=== PATIENT | male | born 1985 | race Caucasian/White ===

== ENCOUNTER 2019-04-26 10:16 | Emergency (ER) | payer BC ==
[~2019-04-26] VITALS: Ht 185.4 cm; Wt 111.1 kg
[2019-04-26] MEDS ORDERED: ASPIRIN 81 MG CHEW TAB PO ONE (10:45)
[2019-04-26 10:51] LABS: BASOPHILS # (AUTO) 0.1 (0.0-0.1); EOSINOPHILS # (AUTO) 0.1 (0.0-0.4); HEMATOCRIT 45.5 % (38.2-49.6); HEMOGLOBIN 16.3 g/dL (14.0-18.0); LYMPHOCYTES # (AUTO) 2.2 (1.0-3.2); LYMPHOCYTES % 30.6 % (18.0-39.1); MEAN CORPUSCULAR HEMOGLOBIN 29.7 pg (28-32); MEAN CORPUSCULAR HGB CONC 35.8 g/dL (31-35); MONOCYTES # (AUTO) 0.4 (0.2-0.8); MONOCYTES % 5.4 % (4.4-11.3); NEUTROPHILS # (AUTO) 4.5 (2.1-6.9); NEUTROPHILS % 61.6 % (38.7-80.0); PLATELET COUNT 382 x10e3/uL (140-360); RED BLOOD COUNT 5.48 x10e6/uL (4.3-5.7); RED CELL DISTRIBUTION WIDTH 11.7 % (11.7-14.4)
--- NOTE | 2019-04-26 10:58 | Diagnostic Imaging Report ---
A single frontal view of the chest. HISTORY: Heart fluttering COMPARISON: None available. DISCUSSION: Portable technique, limits sensitivity of the exam. Overlying artifacts. Soft tissue attenuation partially limits sensitivity of the exam. Tubes/Lines: None Lungs and pleura: The lungs are well inflated. No evidence of a consolidative pneumonia or pulmonary alveolar edema. No definite pleural effusion or pneumothorax is identified. Heart and mediastinum: The cardiomediastinal silhouette appear(s) unremarkable. Bones and soft tissues: Appear unremarkable, given this limited exam. IMPRESSION: No acute radiographic abnormality. Signed by: Dr. Matheus Villalobos D.O., M.M.M. on 04/26/2019 10:54 AM
[2019-04-26 11:03] LABS: INR 1.06; PARTIAL THROMBOPLASTIN TIME 33.4 seconds (23.8-35.5); PROTHROMBIN TIME 14.3 seconds (11.9-14.5)
[2019-04-26 11:10] LABS: ALANINE AMINOTRANSFERASE 30 IU/L (0-55); ALBUMIN 4.1 g/dL (3.5-5.0); ALBUMIN/GLOBULIN RATIO 1.2 (0.8-2.0); ALKALINE PHOSPHATASE 76 IU/L (40-150); ANION GAP 12.1 mmol/L (8-16); BLOOD UREA NITROGEN 13 mg/dL (7-26); BUN/CREATININE RATIO 15 (6-25); CALCIUM 9.4 mg/dL (8.4-10.2); CARBON DIOXIDE 25 mmol/L (22-29); CHLORIDE 106 mmol/L (98-107); CREATINE KINASE 265 IU/L (30-200); CREATININE, SERUM 0.87 mg/dL (0.72-1.25); EST GLOMERULAR FILTRATION RATE > 60 ML/MIN (60-); GLUCOSE 109 mg/dL (74-118); POTASSIUM 4.1 mmol/L (3.5-5.1); SODIUM 139 mmol/L (136-145)
[2019-04-26 11:29] LABS: THYROID STIMULATING HORMONE 0.844 uIU/mL (0.350-4.940)
[2019-04-26] MEDS ORDERED: SODIUM CHLORIDE 0.9% 1000ML 1,000 ML ONE (12:04)
[2019-04-26] MEDS ORDERED: SODIUM CHLORIDE 0.9% 1000ML 1,000 ML IV SCH (12:15)
--- NOTE | 2019-04-26 12:30 | NUR ---
DR. MCINTYRE AT BEDSIDE WITH ULTRASOUND MACHINE. DISCUSSING RESULTS WITH PATIENT.
== END 2019-04-26 12:49 | disposition home or self-care (01) ==
LOC: ER 10:16
DX: R00.2 Palpitations (principal); R06.02 Shortness of breath; F17.210 Nicotine dependence, cigarettes, uncomplicated
CPT/HCPCS: 36415; 71045; 80053; 82550; 82553; 84443; 84484; 85025; 85610; 85730; 93005; 99284; J7030

== ENCOUNTER 2019-04-29 15:47 | Observation (INO) | payer BC ==
[~2019-04-29] VITALS: Ht 185.4 cm; Wt 108.4 kg
--- OUTSIDE RECORDS SUMMARY | 2019-04-29 15:50 | XMS REPORT ---
Author Author [facility] Address Unknown Phone Unavailable Care Team Providers Care Bottle Caser Name Role Phone Gonzalez MCINTYRE Unavailable Unavailable Problems This patient has no known problems. Allergies, Adverse Reactions, Alerts This patient has no known allergies or adverse reactions. Medications This patient has no known medications. Results Test Description Test Time Test Comments Text Results Atomic Results Result Comments CHEST SINGLE (PORTABLE) 2019-04-26 10:53:00 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 HISTORY: Heart fluttering COMPARISON: None available. DISCUSSION: Portable technique, limits sensitivity of the exam. Overlying artifacts. Soft tissue attenuation partially limits sensitivity of the exam. Tubes/Lines: None Lungs and pleura: The lungs are well inflated. No evidence of a consolidative pneumonia or pulmonary alveolar edema. No definite pleural effusion or pneumothorax is identified. Heart and mediastinum: The cardiomediastinal silhouette appear(s) unremarkable. Bones and soft tissues: Appear unremarkable, given this limited exam. IMPRESSION: No acute radiographic abnormality. Signed by: Dr. Silvina Villalobos D.O., M.M.M. on 04/26/2019 10:54 AM Dictated By: SILVINA VILLALOBOS DO 1054 Transcribed By: WILLIS on 04/26/191053 COPY TO: TERESA DEMPSEY NP
[2019-04-29] MEDS ORDERED: ASPIRIN 81 MG CHEW TAB PO ONE (16:45)
[2019-04-29 17:04] LABS: BASOPHILS # (AUTO) 0.1 (0.0-0.1); BASOPHILS % 0.6 % (0.0-1.0); EOSINOPHILS % 0.1 % (0.0-6.0); HEMATOCRIT 43.9 % (38.2-49.6); HEMOGLOBIN 15.4 g/dL (14.0-18.0); LYMPHOCYTES # (AUTO) 1.6 (1.0-3.2); LYMPHOCYTES % 15.4 % (18.0-39.1); MEAN CORPUSCULAR HEMOGLOBIN 29.2 pg (28-32); MEAN CORPUSCULAR HGB CONC 35.1 g/dL (31-35); MEAN CORPUSCULAR VOLUME 83.1 fL (81-99); MONOCYTES # (AUTO) 0.4 (0.2-0.8); MONOCYTES % 3.6 % (4.4-11.3); NEUTROPHILS # (AUTO) 8.3 (2.1-6.9); NEUTROPHILS % 80.1 % (38.7-80.0); PLATELET COUNT 364 x10e3/uL (140-360); RED BLOOD COUNT 5.28 x10e6/uL (4.3-5.7); RED CELL DISTRIBUTION WIDTH 11.6 % (11.7-14.4)
[2019-04-29 17:27] LABS: ALANINE AMINOTRANSFERASE 24 IU/L (0-55); ALBUMIN 4.3 g/dL (3.5-5.0); ALBUMIN/GLOBULIN RATIO 1.1 (0.8-2.0); ALKALINE PHOSPHATASE 69 IU/L (40-150); ANION GAP 15.6 mmol/L (8-16); BLOOD UREA NITROGEN 13 mg/dL (7-26); BUN/CREATININE RATIO 13 (6-25); CALCIUM 9.2 mg/dL (8.4-10.2); CARBON DIOXIDE 28 mmol/L (22-29); CHLORIDE 100 mmol/L (98-107); CREATINE KINASE 81 IU/L (30-200); CREATININE, SERUM 1.02 mg/dL (0.72-1.25); EST GLOMERULAR FILTRATION RATE > 60 ML/MIN (60-); GLUCOSE 96 mg/dL (74-118); POTASSIUM 4.6 mmol/L (3.5-5.1); SODIUM 139 mmol/L (136-145)
--- NOTE | 2019-04-29 18:16 | Diagnostic Imaging Report ---
Examination: Single AP view of the chest. COMPARISON: None. INDICATION: High blood pressure DISCUSSION: Lines/tubes: None. Lungs: The lungs are well inflated and clear. No pneumonia or pulmonary edema. Pleura: No pleural effusion or pneumothorax. Heart and mediastinum: The heart and the mediastinum are unremarkable. Bones and soft tissues: No acute bony abnormalities. IMPRESSION: 1. No acute cardiopulmonary abnormalities. Signed by: Dr. Kai Freeman M.D. on 04/29/2019 6:12 PM
--- NOTE | 2019-04-29 20:20 | NUR ---
Patient brought from Er in a stretcher with c/o chest pain.admission assessment done.aaox3.ambualtory.not taking any home medication .no resp distress.no chest pain voiced right now.v/s stable tele#34 showing Sr.Iv to left ac #20.patent .oriented to the unit.bed locked and in lowest position.phone and call light within reach.instructed to call for assistance as needed.stress test to be done tomorrow.snacks provided.
[2019-04-29 20:47] VITALS: BP 157/83
[2019-04-29 21:00] VITALS: BP_SYST 157; BP_SYST 158; BP_DIAS 83; BP_DIAS 87
[2019-04-30] VITALS: BP 145/82
--- NOTE | 2019-04-30 00:10 | NUR ---
BLOOD MINA AND SENT TO THE LAB FOR CARDIAC MARKERS.
[2019-04-30 00:48] LABS: CREATINE KINASE MB 0.7 ng/mL (0-5.0)
[2019-04-30 04:00] VITALS: BP 138/72
--- NOTE | 2019-04-30 06:50 | NUR ---
On npo.Holter monitor is in place.bed side shift report given to the oncoming Rn.stable condition.
--- NOTE | 2019-04-30 07:00 | NUR ---
RECEIVED PATIENT RESTING IN BED NO SIGNS OF DISTRESS. BED LOW, WHEELS LOCKED, SIDE RAILS X2. CALL LIGHT IN REACH WILL CONTINUE TO MONITOR PATIENT.
[2019-04-30 07:38] VITALS: BP 149/77
[2019-04-30 08:07] LABS: BASOPHILS # (AUTO) 0.1 (0.0-0.1); BASOPHILS % 0.9 % (0.0-1.0); EOSINOPHILS # (AUTO) 0.1 (0.0-0.4); EOSINOPHILS % 1.6 % (0.0-6.0); HEMATOCRIT 42.5 % (38.2-49.6); HEMOGLOBIN 15.1 g/dL (14.0-18.0); LYMPHOCYTES # (AUTO) 2.1 (1.0-3.2); MEAN CORPUSCULAR HEMOGLOBIN 29.6 pg (28-32); MEAN CORPUSCULAR HGB CONC 35.5 g/dL (31-35); MEAN CORPUSCULAR VOLUME 83.3 fL (81-99); MONOCYTES # (AUTO) 0.5 (0.2-0.8); MONOCYTES % 7.1 % (4.4-11.3); PLATELET COUNT 321 x10e3/uL (140-360); RED CELL DISTRIBUTION WIDTH 11.7 % (11.7-14.4)
[2019-04-30 08:32] VITALS: BP 149/77
[2019-04-30 08:32] LABS: CHOL/HDL RATIO 6.1 (3.9-4.7)
[2019-04-30 08:52] LABS: THYROID STIMULATING HORMONE 0.817 uIU/mL (0.350-4.940)
[2019-04-30 08:56] LABS: CREATINE KINASE 66 IU/L (30-200)
--- NOTE | 2019-04-30 10:03 | NUR ---
PATIENT A/O X3, EVEN RESPIRATIONS ON RA. LUNG SOUNDS CLEAR TO AUSCULTATION. TELEMETRY #34 SR. PATIENT NPO AT THIS TIME FOR STRESS TEST TODAY. LEFT AC 20 GAUGE IV SL. PATIENT AMBULATORY. NO CHEST PAIN AT THIS TIME. HOLTER MONITOR IN PLACE. CALL LIGHT IN REACH WILL CONTINUE TO MONITOR PATIENT.
[2019-04-30 11:50] VITALS: BP 148/81
--- NOTE | 2019-04-30 14:10 | Myoview Stress Test ---
DATE OF STUDY: 04/29/2019 19:17:00 Stress Test - Treadmill ONLY PROCEDURE: Rest/stress single isotope SPECT imaging with exercise stress and gated SPECT imaging. INDICATION: Chest pain. PROCEDURE IN DETAIL: The patient performed treadmill exercise using a Nicola protocol, exercising for 12 minutes to stage IV and completing estimated workload of 12.8 metabolic equivalents (METs). The heart rate was 99 beats per minute at rest and increased to 170 beats per minute at peak exercise, which was 92% of the maximum predicted heart rate. The resting blood pressure was 145/77 and increased to 209/102 mmHg, which is a normal response. The patient did not complain of any symptoms during the procedure. The resting electrocardiogram demonstrated normal sinus rhythm. There were no ST-segment changes suggestive of myocardial ischemia. Myocardial perfusion imaging was performed at rest following the injection of 11 mCi of tetrofosmin. At peak exercise, the patient was injected with 32.7 mCi of tetrofosmin. Gated post-stress tomographic imaging was performed. FINDINGS: The overall quality of study is fair. Left ventricular cavity is noted to be normal size on the rest and stress studies. SPECT images demonstrate homogeneous tracer distribution throughout the myocardium. Gated SPECT imaging reveals normal myocardial thickening and wall motion. Left ventricular ejection fraction was calculated at 50%. IMPRESSION: Myocardial perfusion imaging is normal. Overall, left ventricular ejection fraction was normal without regional wall motion abnormalities. Louann Albarran MD ABS/DAVIDL /[id number]
--- NOTE | 2019-04-30 15:55 | NUR ---
REMOVED PATIENTS IV. CATHETER TIP INTACT AND PRESSURE DRESSING APPLIED.
--- NOTE | 2019-04-30 15:58 | NUR ---
PATIENT DISCHARGED FROM FACILITY. PATIENT GATHERED ALL PERSONAL BELONGINGS, DISCHARGE INSTRUCTIONS AND FOLLOW UP INFORMATION. LEFT UNIT IN WHEELCHAIR AND WENT HOME VIA PRIVATE AUTO. NO SIGNS OF DISTRESS WHEN LEAVING FACILITY.
--- NOTE | 2019-04-30 16:31 | Consultation ---
DATE OF CONSULTATION: 04/30/2019 Cardiology Consultation REQUESTING PHYSICIAN: Wilber Stauffer MD. REASON FOR CONSULTATION: Chest pain. HISTORY OF PRESENT ILLNESS: This is a 33-year-old male without significant past medical history, who presents with complaints of chest pain and high blood pressure. The patient reports that he was moving on Saturday and subsequently developed an irregular heartbeat on Saturday night that lasted approximately 6 hours. The following day, he felt weak and was evaluated in the ER. He was seen by Dr. Austin in the office for further evaluation and had Holter and echocardiogram performed. Yesterday, he noted discomfort in his left chest, which he described as burning, 1/10 in severity. There was no shortness of breath, nausea, or diaphoresis. This was associated with tingling in his arms. He checked his blood pressure and noted it was elevated. He therefore presented to Cardiology Clinic and was seen by Dr. Austin, who instructed him to present to the ER for further evaluation. The patient has been complaining of weakness for the last several days. REVIEW OF SYSTEMS: Negative except as per HPI. PAST MEDICAL HISTORY: Prior episode of seizure, not currently on antiepileptic drugs. PAST SURGICAL HISTORY: 1. Pyloric stenosis. 2. Right ACL. 3. Left inguinal hernia. ALLERGIES: PLEASE SEE EMR. MEDICATIONS: Please see medication list. SOCIAL HISTORY: Denies tobacco or illicit drugs. He drinks alcohol occasionally. FAMILY HISTORY: No immediate family members with heart disease. PHYSICAL EXAMINATION: VITAL SIGNS: Temperature 96.8 degrees, pulse 66, respiratory rate 14, blood pressure 149/77, and oxygen saturation 96% on room air. GENERAL: Well-developed, well-nourished man, in no acute distress. HEENT: Normocephalic and atraumatic. Pupils equal. No scleral icterus. NECK: Supple. No thyromegaly or cervical lymphadenopathy. No carotid bruits. LUNGS: Clear to auscultation bilaterally. No wheezes or crackles. CARDIOVASCULAR: Normal rate. Regular rhythm. No murmur. Normal S1 and S2. ABDOMEN: Soft and nontender. EXTREMITIES: No edema. NEUROLOGIC: Nonfocal exam. LABORATORY DATA: WBC count 6.77, hemoglobin 15.1, hematocrit 42.5, and platelets 321. Sodium 139, potassium 4.6, chloride 100, CO2 of 28, BUN 13, and creatinine 1.02. Troponin less than 0.001. Triglycerides 150, cholesterol 188, LDL 127, and HDL 31. Chest x-ray, no acute cardiopulmonary abnormalities. TELEMETRY: Normal sinus rhythm. IMPRESSION: 1. Chest pain. 2. Palpitations. 3. Hypertension, uncontrolled. RECOMMENDATIONS: The patient ruled out for myocardial infarction with serial cardiac biomarkers. Nuclear stress test was performed without evidence of ischemia. Discussed heart healthy, low-fat, low-cholesterol, low-sodium diet, exercise, and weight loss. Given the patient's complaint of palpitations and elevated blood pressure, would recommend starting the patient on low-dose metoprolol on discharge. Recommended the patient to follow up with Dr. Austin in the office in 2 weeks. Louann Albarran MD ABS/MODL /[id number]
--- NOTE | 2019-05-01 08:50 | Discharge Summary ---
ADMISSION DIAGNOSES: 1. Chest pain. 2. Hypertensive urgency. 3. Obesity with a BMI of 31.5. DISCHARGE DIAGNOSES: 1. Chest pain. 2. Hypertensive urgency. 3. Obesity with a BMI of 31.5. 4. Rule out acute coronary syndrome. HISTORY: Grand mal seizure in 2012 x1. Panic attacks. SURGICAL HISTORY: Left inguinal hernia repair, right ankle ACL repair, and pyloric stenosis repair. FAMILY HISTORY: The patient's dad had cancer. The patient's aunts and uncles had stroke. SOCIAL HISTORY: Occasional alcohol use. Occasional cigar use. HOSPITAL COURSE: A 33-year-old male admits with complaints of chest burning, which he describes the superficial with associated palpitations, nausea, lightheadedness, and bilateral upper extremity numbness and tingling that happened the day before admission. He had a similar episode the prior weekend and went to the ER, and was discharged home and told to follow up with Cardiology. Once he went to the systems software specialist, he was given a Holter monitor. He re-admitted once the episode happened again. In the ER, his blood pressure was 178/88. Troponins were negative. Chest x-ray negative. EKG showed normal sinus rhythm. Lipid panel and triglycerides were elevated by one point. The patient was encouraged to change diet. TSH was within normal limits. The patient was started on aspirin. Cardiology recommended a stress test, which was negative. Blood pressure continued to come down during hospitalization. He was given a prescription for lorazepam and low-dose Norvasc. He is approved to discharge home per Cardiology. He will follow up with primary care in 1 to 2 weeks. Vital signs stable. The patient is afebrile. The patient understands discharge instructions and agrees to plan. Dictated by Yvette Wall NP MD MARINO Adkins/TJ /[id number]
== END 2019-04-30 15:59 | disposition home or self-care (01) ==
LOC: ER 15:47 → ERHOLD 17:05 → MED/SURG 20:47
PROVIDERS: ADMIT Internal Medicine; ATTEND Internal Medicine
DX: R07.9 Chest pain, unspecified (principal); I16.0 Hypertensive urgency; R53.1 Weakness; R00.2 Palpitations; I10 Essential (primary) hypertension; E66.9 Obesity, unspecified; Z68.31 Body mass index [BMI] 31.0-31.9, adult; Z88.5 Allergy status to narcotic agent; Z88.8 Allergy status to other drugs, medicaments and biological substances; Z88.0 Allergy status to penicillin; Z80.9 Family history of malignant neoplasm, unspecified; Z82.3 Family history of stroke
CPT/HCPCS: 36415; 71045; 78452; 80053; 80061; 82306; 82550 ×2; 82553 ×2; 84443; 84484 ×2; 85025 ×2; 85730; 93005; 93017; 99284; A9502; G0378 ×2

== ENCOUNTER 2021-04-19 10:36 | Emergency (ER) | payer BC ==
[~2021-04-19] VITALS: Ht 185.4 cm; Wt 108.4 kg
[2021-04-19] MEDS ORDERED: SODIUM CHLORIDE 0.9% 1000ML 1,000 ML IV STA (11:01)
[2021-04-19] MEDS ORDERED: ONDANSETRON HCL INJ 2MG/ML 2ML 2 MG/ML VIAL IV STA ×2 (11:01→12:34)
[2021-04-19] MEDS ORDERED: KETOROLAC TROMETHAMINE 30 MG/ML VIAL IV STA (11:01)
[2021-04-19 11:11] LABS: BASOPHILS # (AUTO) 0.1 (0.0-0.1); BASOPHILS % 0.8 % (0.0-1.0); EOSINOPHILS # (AUTO) 0.1 (0.0-0.4); EOSINOPHILS % 1.4 % (0.0-6.0); HEMATOCRIT 43.3 % (38.2-49.6); HEMOGLOBIN 15.1 g/dL (14.0-18.0); LYMPHOCYTES # (AUTO) 2.8 (1.0-3.2); LYMPHOCYTES % 43.4 % (18.0-39.1); MEAN CORPUSCULAR HEMOGLOBIN 29.9 pg (28-32); MEAN CORPUSCULAR HGB CONC 34.9 g/dL (31-35); MEAN CORPUSCULAR VOLUME 85.7 fL (81-99); MONOCYTES # (AUTO) 0.3 (0.2-0.8); MONOCYTES % 4.2 % (4.4-11.3); NEUTROPHILS # (AUTO) 3.2 (2.1-6.9); NEUTROPHILS % 49.9 % (38.7-80.0); PLATELET COUNT 350 x10e3/uL (140-360); RED BLOOD COUNT 5.05 x10e6/uL (4.3-5.7); RED CELL DISTRIBUTION WIDTH 11.5 % (11.7-14.4)
[2021-04-19] MEDS ORDERED: SODIUM CHLORIDE 0.9% 1000ML 1,000 ML ONE (11:13)
[2021-04-19 11:29] LABS: ALBUMIN 4.3 g/dL (3.5-5.0); ALBUMIN/GLOBULIN RATIO 1.2 (0.8-2.0); ANION GAP 16.1 mmol/L (8-16); CALCIUM 9.4 mg/dL (8.4-10.2); CREATININE, SERUM 0.92 mg/dL (0.72-1.25); POTASSIUM 5.1 mmol/L (3.5-5.1)
[2021-04-19 12:10] LABS: CLARITY,URINE CLOUDY (CLEAR); COLOR,URINE YELLOW (YELLOW); KETONES,URINE NEGATIVE (NEGATIVE); LEUKOCYTE ESTERASE ,URINE NEGATIVE (NEGATIVE); NITRITE,URINE NEGATIVE (NEGATIVE); PROTEIN,URINE DIPSTICK NEGATIVE (NEGATIVE); URINE UROBILINOGEN 0.2 mg/dL (0.2 - 1)
[2021-04-19 12:37] LABS: BACTERIA,URINE FEW /HPF; EPITHELIAL CELLS,URINE FEW /LPF; RBC,URINE >50 /HPF (0-5); WBC,URINE (MAN) 0-5 /HPF (0-5)
[2021-04-19] MEDS ORDERED: MORPHINE SULFATE INJ 2 MG/ML SYR IV PRN (12:45)
[2021-04-19] MEDS ORDERED: HYDROMORPHONE 1MG/1ML INJ IV STA (13:30)
== END 2021-04-19 14:39 | disposition home or self-care (01) ==
LOC: ER 10:45
DX: N20.0 Calculus of kidney (principal); G40.909 Epilepsy, unspecified, not intractable, without status epilepticus
CPT/HCPCS: 36415; 74176; 80053; 81001; 85025; 87086; 99284; J1170; J2270; J2405; J7030